=== PATIENT | female | born 1960 ===

== ENCOUNTER 2020-06-09 12:54 | Emergency (ER) | payer SELFPAY ==
--- NOTE | 2020-06-09 13:02 | PC.NURSE ---
pt did not want to pay copay, decided to leave prior to treatment.
== END 2020-06-09 13:25 | disposition left against medical advice (07) ==
LOC: HO.ED 13:21
PROVIDERS: Emergency Provider Emergency Medicine; PCP Family Medicine
DX: M79.10 Myalgia, unspecified site (principal)
CPT/HCPCS: 99281